=== PATIENT | male | born 1955 | race Caucasian/White ===

== ENCOUNTER → 2017-10-28 | Outpatient (CLI) | payer OTHER ==
[~2017-10-28] MED LIST: ASPIR 8181 M1 PO; IBUPROFEN200 M1 PO; MEVACOR40 MG PO; MICROZIDE12.5 M1 PO; PRINIVIL10 MG PO
== END | disposition home or self-care (01) ==
DX: M17.12 Unilateral primary osteoarthritis, left knee (principal); R26.2 Difficulty in walking, not elsewhere classified; M25.562 Pain in left knee; M25.662 Stiffness of left knee, not elsewhere classified; Z74.1 Need for assistance with personal care
CPT/HCPCS: 97161 GP; 97165 GO; 97530 GP; 97535 GO

== ENCOUNTER 2017-11-10 10:24 | Inpatient (IN) | payer OTHER ==
[~2017-11-10] VITALS: Ht 182.9 cm; Wt 120.6 kg
[2017-11-27] MEDS ORDERED: IRON325 M1 PO (15:11)
[2017-12-02 10:21] VITALS: BP 139/68
[2017-12-02 13:14] LABS: HEMATOCRIT 40.9 % (38.0-50.0); MCH 30.6 PG (29.0-34.0); MCHC 34.2 G/DL (30.0-36.0); MCV 89.3 FL (86-99); PLATELET COUNT 203 K/uL (156-360); RBC DIS.WIDTH-CV 12.8 % (11.8-14.6); RBC DIS.WIDTH-SD 42.2 % (39-53); RED BLOOD COUNT 4.58 M/uL (4.00-5.50); WHITE BLOOD COUNT 9.6 K/uL (4.1-10.2)
[2017-12-02 14:35] VITALS: BP 156/79
[2017-12-02 16:05] VITALS: BP 113/56
[2017-12-02 20:24] VITALS: BP 121/65
[2017-12-03 00:13] VITALS: BP 121/57
[2017-12-03 04:12] VITALS: BP 129/59
[2017-12-03 07:08] LABS: HEMOGLOBIN 14.1 G/DL (12.5-16.6); MCV 88.6 FL (86-99)
[2017-12-03 07:33] LABS: CHLORIDE 100 MEQ/L (99-109); CREATININE 0.9 MG/DL (0.6-1.3); GFR ESTIMATE (CALCULATED) > 59 mL/min/ (58.99-99999); GLUCOSE 151 mg/dL (70-99); POTASSIUM 4.3 MEQ/L (3.7-5.4); SODIUM 138 MEQ/L (136-147); UREA NITROGEN (BUN) 16 mg/dL (9-23)
[2017-12-03 08:00] VITALS: BP 152/72
[2017-12-03 12:13] VITALS: BP 152/71
[2017-12-03 15:46] VITALS: BP 181/84
[2017-12-03 20:12] VITALS: BP 150/68
[2017-12-04 00:27] VITALS: BP 128/66
[2017-12-04 04:18] VITALS: BP 128/64
[2017-12-04 05:52] LABS: HEMOGLOBIN 13.3 G/DL (12.5-16.6); MCV 88.9 FL (86-99)
[2017-12-04 07:56] VITALS: BP 137/68
[2017-12-04] MEDS ORDERED: OXYCONTIN10 MG PO (08:45)
[2017-12-04] MEDS ORDERED: LOVENOX40 MG/0.4 SC (08:45)
[2017-12-04] MEDS ORDERED: ENDOCET 5-3251 EACH PO (08:45)
[2017-12-04 12:00] VITALS: BP 134/70
== END 2017-12-04 15:51 | DRG 470 ==
LOC: 2SOUTH 10:24 → ENRESERV 12-01 22:06 → 2SOUTH 12-02 07:34 → 3WEST 12-02 09:12 → 2SOUTH 12-02 15:40 → 3WEST 12-04 15:51
PROVIDERS: Orthopaedic Surgery
PROC: 0SRD0J9 Replacement of Left Knee Joint with Synthetic Substitute, Cemented, Open Approach (ICD-10-PCS; principal; 2017-12-02)
DX: M17.12 Unilateral primary osteoarthritis, left knee (principal); I10 Essential (primary) hypertension; E78.00 Pure hypercholesterolemia, unspecified; R35.1 Nocturia
CPT/HCPCS: 71045; 73560; 80048; 85014; 85018; 85027; C1713; J0131; J0690; J1100; J1650; J2250; J2405; J2795; J3010; J7030; J7050